=== PATIENT | male | born 1955 | race Caucasian/White ===

== ENCOUNTER 2021-09-22 09:30 | Outpatient (RCR) | payer MEDICARE, SELFPAY ==
[2021-08-30 13:04] VITALS: BMI 28.9
[2021-08-30 13:11] VITALS: BMI 28.9
[2021-09-22 09:26] VITALS: BMI 28.8
[2021-09-22 09:28] VITALS: BMI 28.8
== END 2021-11-21 12:06 | disposition home or self-care (01) ==
LOC: ANHDMC 09:30
PROVIDERS: PCP Family Medicine; Visit Provider Family Medicine
DX: E11.65 Type 2 diabetes mellitus with hyperglycemia (principal); Z71.3 Dietary counseling and surveillance; Z71.89 Other specified counseling
CPT/HCPCS: 97802; 97803; G0108